=== PATIENT | male | born 1985 | race African-American/Black ===

== ENCOUNTER 2019-06-15 08:58 | Emergency (ER) | payer OTHER ==
[~2019-06-15] VITALS: Ht 162.6 cm; Wt 61.2 kg
[2019-06-15 09:06] VITALS: TEMP 97.7
[2019-06-15 10:45] VITALS: BP 125/80
== END 2019-06-15 10:45 | disposition home or self-care (01) ==
LOC: ED 08:58
PROC: 0HQFXZZ Repair Right Hand Skin, External Approach (ICD-10-PCS; principal; 2019-06-15)
PROC: 0HDQXZZ Extraction of Finger Nail, External Approach (ICD-10-PCS; 2019-06-15)
DX: S61.312A Laceration without foreign body of right middle finger with damage to nail, initial encounter (principal); S62.662A Nondisplaced fracture of distal phalanx of right middle finger, initial encounter for closed fracture; W26.8XXA Contact with other sharp object(s), not elsewhere classified, initial encounter; Y92.89 Other specified places as the place of occurrence of the external cause
CPT/HCPCS: 90471; 90715; 99283; C1729; J7040

== ENCOUNTER 2019-06-17 08:24 | Emergency (ER) | payer OTHER ==
[~2019-06-17] VITALS: Ht 162.6 cm; Wt 61.2 kg
[2019-06-17 08:42] VITALS: BP 121/73; TEMP 97.7
== END 2019-06-17 09:23 | disposition home or self-care (01) ==
LOC: ED 08:24
DX: Z48.00 Encounter for change or removal of nonsurgical wound dressing (principal)